=== PATIENT | male | born 1965 | race Caucasian/White ===

== ENCOUNTER 2016-10-23 14:17 | Emergency (ER) | payer OTHER ==
--- NOTE | 2016-10-23 15:03 | EDM.PDOC ---
ED HPI GENERAL MEDICAL PROBLEM - General Chief Complaint: General Stated Complaint: Swelling, dusky color to left lower leg/calf pain Time Seen by Provider: 10/23/16 14:45 Source of Information: Reports: Patient - History of Present Illness Onset: Gradual Onset Date: 10/22/16 (swelling started last night according to however pt didnt notice till this am. ) Location: Reports: Lower Extremity, Right Quality: Reports: Ache, Other (tight and cramping ) Severity: Moderate Improves with: Reports: None Worsens with: Reports: None Associated Symptoms: Reports: No Other Symptoms. 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 [No Known Home Meds] 10/23/16 [History] ED ROS GENERAL - Review of Systems Review Of Systems: See Below Constitutional: Reports: No Symptoms HEENT: Reports: No Symptoms Respiratory: Reports: No Symptoms Cardiovascular: Reports: No Symptoms GI/Abdominal: Reports: No Symptoms Skin: Reports: No Symptoms. Denies: Bruising, Rash, Erythema, Wound, Lesions, Urticaria Neurological: Reports: No Symptoms Immunologic: Reports: No Symptoms ED EXAM, GENERAL - Physical Exam Exam: See Below Exam Limited By: No Limitations General Appearance: Alert, WD/WN, No Apparent Distress Respiratory/Chest: No Respiratory Distress, Lungs Clear, No Accessory Muscle Use Cardiovascular: Normal Peripheral Pulses, Regular Rate, Rhythm, No Edema, No JVD , No Murmur, No Rub Peripheral Pulses: 1+: Dorsalis Pedis (L) (with use of doppler device ), 3+: Posterior Tibial (R), Dorsalis Pedis (R) GI/Abdominal: Normal Bowel Sounds, Soft, Non-Tender Extremities: Hieu's Sign, Leg Pain, Mottled, Pallor. No: Pedal Edema, Joint Swelling, Arm Pain, Limited Range of Motion, Increased Warmth, Redness Neurological: Alert, Oriented Skin Exam: Warm, Dry, Intact, Mottled (left lower leg), Pallor (left lower leg ) Course - Vital Signs Last Recorded V/S: Last Vital Signs Temp 36.6 C 10/23/16 14:34 Pulse 79 10/23/16 14:34 Resp 16 10/23/16 14:34 BP 131/82 10/23/16 14:34 Pulse Ox 98 10/23/16 14:34 Departure - Departure Time of Disposition: 15:05 Disposition: DC/Tfer to Acute Hospital 02 Condition: Good Clinical Impression: Left leg swelling - Discharge Information Instructions: Deep Vein Thrombosis Referrals: Carly Shah DO [Primary Care Provider] - Forms: ED Department Discharge, Interfacility Transfer EMTALA Additional Instructions: Pt is advised to report to the [place] [facility] right away[place] [address] Pt should remain NPO until further testing has been completed and definitive diagnosis has been confirmed. Pt was advised to transport via EMS however, per wishes he will be driven by a family member
== END 2016-10-23 15:30 | disposition short-term general hospital (02) ==
LOC: VM.ED 14:17
DX: R22.42 Localized swelling, mass and lump, left lower limb (principal)
CPT/HCPCS: 99284

== ENCOUNTER 2016-12-10 22:00 | Emergency (ER) | payer OTHER ==
[2016-12-10] MEDS ORDERED: Sodium Chloride 0.9% 10 ML Syringe FLUSH PRN (22:14)
[2016-12-10] MEDS ORDERED: Ondansetron 4 MG/2 ML SDV IVPUSH ONE (22:15)
[2016-12-10] MEDS ORDERED: HYDROmorphone 1 MG/ML Syringe IVPUSH ONE (22:15)
[2016-12-10] MEDS ORDERED: Sodium Chloride 0.9% 1,000 ML IV ONE (22:15)
[2016-12-10] MEDS ORDERED: Ketorolac 30 MG/ML SDV IVPUSH ONE (22:16)
[2016-12-10 23:39] LABS: CHLORIDE,CL 106 mmol/L (98-107); SODIUM,NA 143 mmol/L (136-145)
--- NOTE | 2016-12-10 23:45 | EDM.PDOC ---
ED HPI GENERAL MEDICAL PROBLEM - General Chief Complaint: Back Pain or Injury Stated Complaint: Back Pain with radiation to testicles Time Seen by Provider: 12/10/16 22:10 Source of Information: Reports: Patient History Limitations: Reports: No Limitations - History of Present Illness INITIAL COMMENTS - FREE TEXT/NARRATIVE: Pt. states that he has been experiencing low back pain with some radiation into into his anterior abdomen and radiation into his L testicle. He states that the symptoms are intermittent in nature. He denies any history of discomfort like this in the past. Denies any hematuria or pyuria. Denies any fever or chills. Onset: Gradual (Intermittently for several days, worsening today.), Unknown/ Unsure Duration: Waxing/Waning Location: Reports: Abdomen, Back Quality: Reports: Stabbing Severity: Moderate Improves with: Reports: None Worsens with: Reports: None Associated Symptoms: Reports: No Other Symptoms Treatments [employer]: Reports: Acetaminophen - Related Data Allergies Allergy/AdvReac Type Severity Reaction Status Date / Time No Known Allergies Allergy Verified 12/10/16 22:21 Home Meds: Home Meds . [No Known Home Meds] 10/23/16 [History] Past Medical History HEENT History: Reports: Hard of Hearing Hematologic History: Reports: Anticoagulation Therapy, Other (See Below) Other Hematologic History: Factor 5 Leiden mutation, on xaralto for DVT ED ROS GENERAL - Review of Systems Review Of Systems: See Below Constitutional: Reports: No Symptoms HEENT: Reports: No Symptoms Respiratory: Reports: No Symptoms Cardiovascular: Reports: No Symptoms Endocrine: Reports: No Symptoms GI/Abdominal: Reports: Abdominal Pain : Reports: Flank Pain, Other (testicular pain) Musculoskeletal: Reports: No Symptoms Skin: Reports: No Symptoms Neurological: Reports: No Symptoms Psychiatric: Reports: No Symptoms Hematologic/Lymphatic: Reports: No Symptoms Immunologic: Reports: No Symptoms ED EXAM, GENERAL - Physical Exam Exam: See Below Exam Limited By: No Limitations General Appearance: Alert, No Apparent Distress Respiratory/Chest: No Respiratory Distress, Lungs Clear, No Accessory Muscle Use , Chest Non-Tender Cardiovascular: Normal Peripheral Pulses, Regular Rate, Rhythm, No Edema GI/Abdominal: Normal Bowel Sounds, No Distention (Male) Exam: Deferred Back Exam: CVA Tenderness (L), Decreased Range of Motion, Muscle Spasm Extremities: Normal Inspection, Normal Range of Motion Neurological: Alert, Oriented, Normal Gait Course - Orders/Labs/Meds Orders: Active Orders 24 hr Category Date Time Status Sodium Chloride 0.9% [Saline Flush] Med 12/10/16 22:14 Active 10 ml FLUSH ASDIRECTED PRN Peripheral IV Insertion Adult [OM.PC] Routine Oth 12/10/16 22:15 Ordered Medication Orders Sodium Chloride (Saline Flush) 10 ml FLUSH ASDIRECTED PRN PRN Reason: Keep Vein Open Labs: Laboratory Tests 12/10/16 12/10/16 12/10/16 Range/Units 23:02 23:02 23:24 WBC 9.6 (4.0-10.0) x10^3/uL RBC 4.55 (4.5-6.0) x10^6/uL Hgb 13.8 L (14.0-18.0) g/dL Hct 39.5 L (40.0-52.0) % MCV 86.8 (78.0-93.0) fL MCH 30.3 (26.0-32.0) pg MCHC 34.9 (32.0-36.0) g/dL RDW Coeff of Lamberto 13.1 (10.0-15.0) % Plt Count 213 (130-400) x10^3/uL Neut % (Auto) 82.5 H (50.0-80.0) % Lymph % (Auto) 11.4 L (25.0-50.0) % Mcleod % (Auto) 4.8 (2.0-11.0) % Eos % (Auto) 1.1 (0.0-4.0) % Baso % (Auto) 0.2 (0.2-1.2) % Sodium 143 (136-145) mmol/L Potassium 4.3 (3.5-5.1) mmol/L Chloride 106 (98-107) mmol/L Carbon Dioxide 30 (21-32) mmol/L BUN 18 (7-18) mg/dL Creatinine 1.1 (0.70-1.30) mg/dL Est Cr Clr Drug Dosing TNP Estimated GFR (MDRD) > 60 Glucose 106 (74-106) mg/dL Calcium 8.6 (8.5-10.1) mg/dL Corrected Calcium 8.68 (8.5-10.1) mg/dL Total Bilirubin 0.4 (0.2-1.0) mg/dL AST 47 H (15-37) U/L ALT 95 H (16-63) U/L Alkaline Phosphatase 76 (46-116) U/L C-Reactive Protein < 0.2 (<=0.9) mg/dL Total Protein 7.1 (6.4-8.2) g/dL Albumin 3.9 (3.4-5.0) g/dL Globulin 3.2 Albumin/Globulin Ratio 1.22 Urine Color Dark yellow H (YELLOW) Urine Appearance Clear (CLEAR) Urine pH 7.0 (5.0-8.0) Ur Specific [place] 1.020 Urine Protein Negative (NEGATIVE) mg/dL Urine Glucose (UA) Negative (NEGATIVE) mg/dL Urine Ketones Negative (NEGATIVE) mg/dL Urine Occult Blood Negative (NEGATIVE) Urine Nitrite Negative (NEGATIVE) Urine Bilirubin Negative (NEGATIVE) Urine Urobilinogen 0.2 (0.2) EU/dL Ur Leukocyte Esterase Negative (NEGATIVE) Urine RBC 0-5 (NOT SEEN) /HPF Urine WBC Not seen (NOT SEEN) /HPF Ur Squamous Epith Cells Not seen (NEGATIVE) /HPF Urine Bacteria Rare (NEGATIVE) /HPF Urine Mucus Many H (NEGATIVE) /LPF Meds: Medications Generic Name Dose Route Start Last Admin Trade Name Freq PRN Reason Stop Dose Admin Sodium Chloride 10 ml 12/10/16 22:14 Saline Flush FLUSH ASDIRECTED PRN Keep Vein Open Discontinued Medications Generic Name Dose Route Start Last Admin Trade Name Freq PRN Reason Stop Dose Admin Hydrocodone Bitart/Acetaminophen 1 packet 12/10/16 23:58 12/11/16 00:03 Take Home: Acetam/Hydrocodon 325-5 Mg, 5 Pack PO 12/10/16 23:59 1 packet ONETIME ONE Administration Cyclobenzaprine HCl 1 packet 12/10/16 23:58 12/11/16 00:03 Take Home: Cyclobenzaprine 10 Mg, 4 Tab Pack PO 12/10/16 23:59 1 packet ONETIME ONE Administration Hydromorphone HCl 1 mg 12/10/16 22:15 12/10/16 23:06 Dilaudid IVPUSH 12/10/16 22:16 1 mg ONETIME ONE Administration Sodium Chloride 1,000 mls @ 1,000 mls/hr 12/10/16 22:15 12/10/16 23:05 Normal Saline IV 12/10/16 23:14 1,000 mls/hr .BOLUS ONE Administration Ketorolac Tromethamine 30 mg 12/10/16 22:16 12/10/16 23:05 Toradol IVPUSH 12/10/16 22:17 30 mg ONETIME ONE Administration Ondansetron HCl 4 mg 12/10/16 22:15 12/10/16 23:05 Zofran IVPUSH 12/10/16 22:16 4 mg ONETIME ONE Administration - Re-Assessments/Exams Free Text/Narrative Re-Assessment/Exam: 12/11/16 00:07 Pt. stated that pain decreased down to "6" on 1-10 scale after dilaudid and toradol. Departure - Departure Time of Disposition: 00:08 Disposition: Home, Self-Care 01 Condition: Good Clinical Impression: Sciatica, Low back pain - Discharge Information Instructions: Low Back Sprain With Rehab-[facility] Referrals: Trupti Shah PA-C [Primary Care Provider] - Forms: ED Department Discharge Additional Instructions: Flexeril 10mg three times daily as needed for muscle spasm. Lortab 5/325mg 1 every 4-6 hours as needed for pain. Follow-up in clinic in 7-10 days. Do not take extra tylenol, as the norco contains in. - Problem List & Annotations (1) Low back pain SNOMED Code(s): 160050312 Code(s): M54.5 - LOW BACK PAIN Status: Acute Current Visit: Yes (2) Sciatica SNOMED Code(s): 62687872 Code(s): M54.30 - SCIATICA, UNSPECIFIED SIDE Status: Acute Current Visit : Yes - Problem List Review Problem List Initiated/Reviewed/Updated: Yes - My Orders Last 24 Hours: My Active Orders 12/10/16 22:14 Sodium Chloride 0.9% [Saline Flush] 10 ml FLUSH ASDIRECTED PRN 12/10/16 22:15 Peripheral IV Insertion Adult [OM.PC] Routine - Assessment/Plan Last 24 Hours: My Active Orders 12/10/16 22:14 Sodium Chloride 0.9% [Saline Flush] 10 ml FLUSH ASDIRECTED PRN 12/10/16 22:15 Peripheral IV Insertion Adult [OM.PC] Routine Assessment:: Low back pain with L sided radiculopathy
[2016-12-10] MEDS ORDERED: Take Home: Acetaminophen/HYDROcodone 325-5 MG, 5 Tab Pack PO ONE (23:58)
[2016-12-10] MEDS ORDERED: Take Home: Cyclobenzaprine 10 MG Tab, 4 Tab Pack PO ONE (23:58)
[2016-12-11 00:38] VITALS: BP 128/88
== END 2016-12-11 00:08 | disposition home or self-care (01) ==
LOC: VM.ED 22:00
DX: M54.40 Lumbago with sciatica, unspecified side (principal); Z79.01 Long term (current) use of anticoagulants
CPT/HCPCS: 36415; 80053; 81001; 85025; 86140; 96365; 96375; 99283; A9270; J1170; J1885; J2405; J7030

== ENCOUNTER 2023-06-15 09:20 | Emergency (ER) | payer OTHER ==
[2023-06-15] MEDS: Lidocaine 1% 10 ML MDV INJECT ONE (09:50)
[2023-06-15] MEDS: Diphtheria,Pertussis(Acell),Tetanus Vaccine 0.5 ML Syringe IM ONE (10:15)
[2023-06-15 13:12] VITALS: PULSE 67
[2023-06-15 13:23] VITALS: BP 144/73
== END 2023-06-15 10:24 | disposition home or self-care (01) ==
LOC: VM.ED 09:20
DX: S01.21XA Laceration without foreign body of nose, initial encounter (principal); Z23 Encounter for immunization; Z79.01 Long term (current) use of anticoagulants; W01.0XXA Fall on same level from slipping, tripping and stumbling without subsequent striking against object, initial encounter; Y93.01 Activity, walking, marching and hiking
CPT/HCPCS: 12013; 90471; 90715; 99283-25; J3490

== ENCOUNTER 2023-07-14 20:47 | Emergency (ER) | payer OTHER ==
[2023-07-14 21:12] VITALS: BP 135/73; PULSE 80
== END 2023-07-14 21:08 | disposition home or self-care (01) ==
LOC: VM.ED 20:47
DX: S81.812A Laceration without foreign body, left lower leg, initial encounter (principal); Z79.899 Other long term (current) drug therapy; W22.8XXA Striking against or struck by other objects, initial encounter
CPT/HCPCS: 99283